=== PATIENT | female | born 1955 | race Caucasian/White ===

== ENCOUNTER 2017-01-04 01:44 | Emergency (ER) | payer MEDICARE ==
[~2017-01-04] VITALS: Ht 170.2 cm; Wt 85.5 kg
[2017-01-04 01:42] VITALS: BP 144/91; PULSE 68; RESP 19; O2SAT 96
[~2017-01-04 01:44] MED LIST: AMLO-39 PO; CITA20TA PO; COZ25 PO; METO25T PO
--- NOTE | 2017-01-04 01:54 | ED.REPORT ---
HPI-Abd Pain F 40 and Over Date of Service Jan 04, 2017 ED Provider: David Lee MD Pt is a 61 year old female with a hx of triple bypass presenting to the ED via EMS complaining of 10/10 intermittent epigastric pain radiating to her back onset 4 hours ago. The pain is now resolved. Denies any vomiting, heartburn, chest pain, SOB, LE swelling, or white or black stool. She had just eaten 2 pancakes with butter before the pain began. Nursing Notes Stated Complaint: EPIGASTRIC PAIN Chief Complaint: Female Abdominal Pain Nursing Notes Reviewed: Yes Allergies: Coded Allergies: No Known Allergies (Unverified , 01/04/17) Scheduled AmLODIPine-Expunged Drug, Do Not Renew! (AmLODIPine-Expunged Drug, Do Not Renew! ) 5 Mg Tablet 10 MG PO DAILY HOLD FOR SBP<[] OR HR<[] Citalopram-Expunged Drug, Do Not Renew! (Citalopram-Expunged Drug, Do Not Renew! ) 20 Mg Tablet 40 MG PO DAILY Losartan-Expunged Drug, Do Not Renew! (Losartan-Expunged Drug, Do Not Renew!) 25 Mg Tablet 25 MG PO DAILY Therapeutic Substitue for all ARB class drugs Metoprolol Tart-Expunged Drug, Do Not Renew! (Metoprolol Tart-Expunged Drug, Do Not Renew!) 25 Mg Tablet 25 MG PO BID General Time Seen by MD: 01:47 Chief Complaint Abdominal pain Hx Obtained From: Patient, EMS Arrived By: Ambulance Sudden in Onset?: Yes Onset Occurred: 1 - 4 hours ago Context of Onset: Eating Symptom Duration: Since onset Progression since Onset: Intermittent Location: : Epigastric Quality: Painful Severity: Current: No pain currently Severity: Maximum: Pain level 10 out of 10 Recent Healthcare: No recent doctor visit, No recent hospitalization Similar Sx Previous: No Past Medical History Past Medical History Bowel obstruction Past Surgical History Triple bypass Denies: Cholecystectomy Smoking History Unknown if Ever Smoker Ambulatory Status Independent Review of Systems Respiratory: Denies: Shortness of breath Cardiovascular: Denies: Chest pain GI: Reports: Abdominal pain, Denies: Bloody/tarry stool, Vomiting Musculoskeletal: Denies: Extremity swelling Complete sys rev & neg: except as marked. Physical Exam Vital Signs Vital Signs (First) Date Time Temp Pulse Resp B/P Pulse Ox O2 Delivery O2 Flow Rate FiO2 7/25/17 01:42 36.5 68 19 144/91 96 Room Air Initial VS: Reviewed Head / Eyes: Atraumatic, Normocephalic, PERRL ENT: Mucous membranes moist, Conjunctiva normal, No scleral icterus Neck: Supple, Non-tender, Full range of motion Extremities: Vascular intact, Neuro intact, No swelling, No tenderness Skin: Warm, Dry, No cyanosis Neurologic: Alert, Oriented, Nonfocal Psychiatric: Mood/affect normal, Behavior normal, Normal thought content General/Constitutional: Awake, Alert, No acute distress, Well appearing, Well developed Respiratory / Chest: Atraumatic, Breath sounds NL, Breath sounds = bilat, No respiratory distress Cardiovascular: Heart rate NL, Regular rhythm, Heart sounds NL Abdomen: Atraumatic, Soft, Non-tender Back: Atraumatic, Inspection NL, Full range of motion Interpretation & Diagnostics Lab Results Interpretation Result Diagram: 01/04/17 0152 01/04/17 0152 Test 01/04/17 01:52 White Blood Count 12.3th/mm3 (3.8-10.1) Red Blood Count 3.82mil/mm3 (3.90-5.20) Hemoglobin 11.0g/dL (12.0-15.6) Hematocrit 34.2% (35.0-46.0) Mean Corpuscular Volume 89.5fL (81-100) Mean Corpuscular Hemoglobin 28.8pg (27.0-35.0) Mean Corpuscular Hemoglobin Concent 32.2% (32.0-37.0) Red Cell Distribution Width 14.0% (12.3-15.4) Platelet Count 223bil/L (150-400) Neutrophils (%) (Auto) 86.7% (40-74) Lymphocytes (%) (Auto) 8.8% (14-46) Monocytes (%) (Auto) 3.7% (4-12) Eosinophils (%) (Auto) 0.5% (0-5) Basophils (%) (Auto) 0.2% (0-3) Hold Purple Top Tube Received (Received) Hold Blue Top Tube Received (Received) Sodium Level 141mEq/L (134-144) Potassium Level 3.9mEq/L (3.5-5.2) Chloride Level 103mEq/L (97-108) Carbon Dioxide Level 23mmol/L (18-29) Blood Urea Nitrogen 15mg/dL (8-27) Creatinine 0.88mg/dL (0.57-1.00) Estimat Glomerular Filtration Rate 93mL/min (>59) Glucose Level 184mg/dL (60-99) Calcium Level 9.4mg/dL (8.5-10.1) Magnesium Level 1.9mg/dL (1.6-2.6) Total Bilirubin 0.3mg/dL (0.0-1.2) Aspartate Amino Transf (AST/SGOT) 24U/L (0-50) Alanine Aminotransferase (ALT/SGPT) 21U/L (0-32) Alkaline Phosphatase 75U/L (25-165) Total Protein 7.3g/dL (6.4-8.4) Albumin 4.2g/dL (3.4-5.0) Lipase 30U/L (13-60) Hold [place] Top Tube Received (Received) ECG Interpretation Time: 01:45 Interpreted by: ED physician Normal ECG Interpretation: Normal rate (65), Normal sinus rhythm Re-Eval/Medical Decision Med Decision/Clinical Course 61-year-old presents with self-limited epigastric and right upper quadrant abdominal pain after moderately fatty meal. No prior similar. Labs are unremarkable. No indication of biliary obstruction. No acholic stools no dark urine. Discussed in detail the possibility of gallstone. She is oriented on Nexium for reflux with no change in her symptomatology. Low-fat diet provided. Follow up with PCP for scheduling of fasting AM ultrasound. Discharge in stable condition pain free. Re-Evaluation/Progress : Time of Eval: 04:20 Patient Status: Condition improved Re-Evaluation/Progress Note: Recommend outpatient ultrasound and see PCP. Counseled Regarding: Diagnosis, Lab results, Need for follow-up, When/why to return to ED Discharge & Departure Primary Impression: Biliary colic Disposition: Home Discharge Condition All VS Reviewed: Yes Condition: Improved Patient Instructions: Biliary Colic (ED) Additional Instructions: I suspect this episode of pain today was related to biliary colic. This is what happens when a gallstone is in the gallbladder and the gallbladder contracts against it, obstructing the bile duct. There is no evidence of a fixed obstruction, as are liver function tests are normal at present. However, there is a better than 60% chance you will have a repeat episode within the next year. eat a very low fat diet. Return if you have prolonged pain, lasting greater than three hours. Follow up with your doctor. Call your doctor today to schedule a fasting morning ultrasound. Referrals: Shivani Collado PA-C (PCP) Scribe Attestation Portions of this note were transcribed by Madeleine Smith. I, Dr. Lee personally performed the history, physical exam and medical decision-making; I reviewed and confirmed the accuracy of the information in the transcribed note. Signed by: James Knox, 01/04/2017 at 0432. copies to: Shivani Collado PA-C, Christopher W MD Jan 04, 2017 01:54 MADELEINE SMITH Jan 04, 2017 02:01
[2017-01-04] MEDS ORDERED: 0.9% Sodium Chloride 1,000 ML IV ONE (02:38)
[2017-01-04 02:48] LABS: BASOPHILS % (AUTO) 0.2 % (0-3); EOSINOPHILS % (AUTO) 0.5 % (0-5); MONOCYTES % (AUTO) 3.7 % (4-12); Mean Corpuscular Hemoglobin 28.8 pg (27.0-35.0); Mean Corpuscular Volume 89.5 fL (81-100); NEUTROPHILS % (AUTO) 86.7 % (40-74); Platelet Count 223 bil/L (150-400)
[2017-01-04 02:59] LABS: Magnesium 1.9 mg/dL (1.6-2.6)
[2017-01-04 04:35] VITALS: BP 150/68; PULSE 72; RESP 18; O2SAT 97
== END 2017-01-04 04:36 | disposition home or self-care (01) ==
LOC: SED 01:44
DX: K80.50 Calculus of bile duct without cholangitis or cholecystitis without obstruction (principal)
CPT/HCPCS: 80053; 83690; 83735; 85025; 93005; 96360; 99284; J7030